=== PATIENT | male | born 1965 | race Caucasian/White ===

== ENCOUNTER 2016-07-15 14:19 | Inpatient (IN) | payer OTHER ==
[~2016-07-15] VITALS: Ht 180.3 cm; Wt 108.0 kg
[~2016-07-15 14:19] MED LIST: ARIP1TAB16 PO; ASPI1TAB69 PO; ATOR1TAB18 PO; CILO50TA PO; CITA20TA4 PO; CLOP75TA PO; HYDR-3583 PO; LISI40TA PO; PANT40TA3 PO; PRAZ2CAP PO; SUCR1TAB PO; TRAZ100T4 PO; VENTAER INH
[2016-07-16] MEDS ORDERED: VARE1 PO (08:58)
[2016-07-16] MEDS ORDERED: MORP1TAB25 PO (13:45)
[2016-08-01] MEDS ORDERED: PROPOFOL 200 MG/20 ML AMP IV ONE (09:34)
[2016-08-01] MEDS ORDERED: ONDANSETRON HCL 4 MG/2 ML VIAL IV PUSH ONE (09:37)
[2016-08-01] MEDS ORDERED: NEOSTIGMINE 3 MG/3 ML SYR IV ONE (09:37)
[2016-08-01] MEDS ORDERED: LACTATED RINGER'S 1000 ML INJ 1,000 ML IV ONE (09:37)
[2016-08-01] MEDS ORDERED: PHENYLEPH/NS 1000 MCG/10 ML SYR IV ONE (09:37)
[2016-08-01] MEDS ORDERED: NORMOSOL R INJ 3,000 ML IV ONE (09:38)
[2016-08-01] MEDS ORDERED: BUPIVACAINE/EPINEPHRINE 0.25% PF 30 ML VIAL ONE (09:51)
[2016-08-01] MEDS ORDERED: GENTAMICIN SULFATE 80 MG/2 ML VIAL ONE (09:51)
[2016-08-01] MEDS ORDERED: VANCOMYCIN HCL 1000 MG VIAL ONE (10:13)
[2016-08-01] MEDS ORDERED: SODIUM CHLOR 0.9% 250 ML INJ 250 ML ONE (10:13)
[2016-08-01] MEDS ORDERED: CHLORHEXIDINE GLUCONATE 4% SOLN 120 ML BTL TOPICAL SCH (10:15)
[2016-08-01] MEDS ORDERED: LACTATED RINGER'S 1000 ML IV PRN (10:15)
[2016-08-01] MEDS ORDERED: SODIUM CHLORID 0.9% 500 ML IV PRN (10:15)
[2016-08-01] MEDS ORDERED: POVIDONE IODINE 5% (ANTISEPSIS KIT) 4 APPLICATIONS EACH NARE PRN (10:15)
[2016-08-01] MEDS ORDERED: VANCOMYCIN 1000 MG/NS 250 ML (for <70 kg) IV SCH ×2 (10:15)
[2016-08-01] MEDS ORDERED: CHLORHEXIDINE GLUCONATE 2 % 1 PACK (2 CLOTHS) TOPICAL PRN (10:15)
[2016-08-01] MEDS ORDERED: INSULIN HUMAN REGULAR 1,000 UNITS/10 ML VIAL SQ PRN (10:15)
[2016-08-01] MEDS ORDERED: ceFAZolin 2 GM PREMIX 50 ML IV SCH (10:15)
[2016-08-01] MEDS ORDERED: METOPROLOL TARTRATE 25 MG TAB PO PRN (10:15)
[2016-08-01 10:16] VITALS: BP 121/63; PULSE 80; RESP 18; TEMP 97.9; O2SAT 93
[2016-08-01] MEDS ORDERED: FAMOTIDINE 20 MG/2 ML VIAL ONE (11:21)
[2016-08-01] MEDS ORDERED: MIDAZOLAM HCL 2 MG/2 ML VIAL ONE (11:21)
--- NOTE | 2016-08-01 15:41 | PD.OP ---
cc: Steve Jesus MD; Henrique Jesus MD Operative Report Date of Surgery: Aug 01, 2016 Preoperative Diagnosis: Herniated nucleus pulposus C4 5, central. Herniated nucleus pulposus C5 6, central. Osteophyte disc complex, C6 7. Cervical radiculopathy Postoperative Diagnosis: Same Procedure: Anterior cervical discectomy decompression with bilateral foraminotomies, C4 5. Anterior cervical discectomy decompression with bilateral foraminotomy, C5 6. Anterocervical dissected decompression bilateral foraminotomies, C6 7. Left anterior iliac crest bone graft Anesthesia: Gen. Surgeon: Henrique Jesus Overcoiler(s): RICKY Jolly Operation and Findings: EBL: 50 cc INDICATIONS: This patient is a 51-year-old male with significant neck and arm pain. Investigative studies shows evidence of a disc herniation centrally into the right at C4 5, centrally C5 6 and an osteophyte disc complex at C6 7. The patient presents with a hard cervical radiculopathy. The patient presents for surgical treatment. NOTE: Molly Jolly PA-C was present for the entire surgical procedure as my web marketing assistant. In my medical opinion her skill and care was necessary for proper management of this patient PROCEDURE: The patient was brought to the operating room and anesthetized in the supine position. This patient was positioned supine on the radiolucent table. All pressure points were protected in the anterior cervical spine and iliac crest was scrubbed with alcohol followed by Hibiclens followed by ChloraPrep. A timeout was done and antibiotics were given within 1 hour time window. Lateral radiographic images were used identifying the proper level. A right anterior incision was made in line with skin creases. The platysma was opened in line with the incision. Deep dissection continued in the interval between the carotid sheath and the esophagus. The longus-coli muscles were lifted on both sides and retractors were positioned allowing good exposure. Lateral radiographic images were used to identify the proper level. [place] style interosseous pins were placed at C4 and C5 allowing exposure to that level. The microscope was rolled into the field. A total discectomy was accomplished and posterior osteophytes were removed. The posterior longitudinal ligament and annulus was taken down. Bilateral foraminotomies were accomplished. The endplates were squared up anticipating later bone grafting. A blunt probe could be placed out each foramen without evidence of nerve root compromise. The C4 pin was placed down to C6. An anterior exposure was accomplished. We performed a total discectomy with excision of the posterior annulus and posterior longitudinal ligament. Bilateral foraminotomies were accomplished. Osteophytes were removed. The endplates were squared up anticipating later bone grafting. A blunt probe could be placed out each foramen without evidence of nerve root compromise. The C5 pin was placed down to to 7. An anterior exposure was accomplished. We performed a total discectomy with excision of the posterior annulus and posterior longitudinal ligament. Bilateral foraminotomies were accomplished. Osteophytes were removed. The endplates were squared up anticipating later bone grafting. A blunt probe could be placed out each foramen without evidence of nerve root compromise. The left iliac crest was approached. A small stab incision was made allowing percutaneous access to the anterior iliac crest. Multiple cores of cancellous bone were harvested and taken to the back table to be used for later bone grafting. The wound was irrigated anesthetized and closed with 4-0 Vicryl followed by Dermabond. The case was turned over to Dr. Steve Jesus for fusion and instrumentation per his dictation. FINDINGS: Was evidence of a significant osteophyte disc complex at C6 7 with bilateral uncovertebral joint hypertrophy and central stenosis with foraminal stenosis. At the C5 6 level there was a central disc herniation contained by the posterior longitudinal ligament but outside the posterior annulus. At C4 5 there was a significant extruded disc herniation centrally and to the right creating a significant right-sided greater than left foraminal stenosis. The final decompression at each level was very satisfactory NOTE: This surgery was performed in 2 parts. The first part was the neurosurgical decompression performed under the variable power stereo microscope by the undersigned in addition to the bone graft. The second portion of the surgery will be performed by the orthopedic spine component by co -surgeon, Dr. Steve Jesus for the anterior fusion with interbody cage and anterior plate. The skill of 2 surgeons was necessary to perform distinct separate procedural services as dictated above and dictated in the following operative note by Dr. Steve Jesus. Henrique Jesus MD Aug 01, 2016 15:41
[2016-08-01] MEDS: LACTATED RINGER'S 1000 ML INJ 1,000 ML IV SCH (16:36)
[2016-08-01] MEDS ORDERED: ALUMINUM/MAGNESIUM/SIMETH 30 ML CUP PO PRN (16:36)
[2016-08-01] MEDS ORDERED: ONDANSETRON HCL 4 MG/2 ML VIAL IV PRN (16:36)
[2016-08-01] MEDS ORDERED: NALOXONE HCL 0.4 MG/ML AMP IV PRN ×2 (16:36)
[2016-08-01] MEDS ORDERED: SODIUM CHLORIDE 0.9% FLUSH 5 ML FLUSH IVF PRN (16:45)
[2016-08-01] MEDS ORDERED: Post-op Orders (for Pharmacy) MISC XX ONE (16:45)
[2016-08-01] MEDS ORDERED: ACETAMINOPHEN/HYDROcodone 325 MG/10 MG TAB PO PRN (16:45)
--- NOTE | 2016-08-01 16:56 | RADRPT ---
EXAM DATE/TIME: 08/01/2016 11:20 [facility] COMPARISON: No previous studies available for comparison. INDICATIONS : C-spine ACDF. MEDICAL HISTORY : None. SURGICAL HISTORY : None. ENCOUNTER: Initial ACUITY: 1 day PAIN SCORE: Non-responsive. LOCATION: Bilateral NECK FINDINGS: 2 lateral views and an AP view of the cervical spine were obtained and demonstrate the patient status post anterior cervical fusion at the C4-C7 level with intact anterior screw-plate fixation device. B one grafting material and metallic markers are noted in the 3 interspaces which are poorly defined. A lignment appears anatomic. CONCLUSION: Status post anterior cervical fusion at the C4-C7 level. Lester Srena MD on August 01, 2016 at 16:52 Board Certified Radiologist. This report was verified electronically.
--- NOTE | 2016-08-01 16:56 | PD.OP ---
Operative Report Date of Surgery: Aug 01, 2016 Preoperative Diagnosis: C4-5 hnp, odc, C5-6 hnp, odc, C6-7 hnp, foraminal stenosis Postoperative Diagnosis: C4-5 hnp, odc, C5-6 hnp, odc, C6-7 hnp, foraminal stenosis Procedure: C4-7 ACDF Anesthesia: general Surgeon: Steve Jesus M.D. Records Administrator(s): RICKY Brown Albert W. MD Aug 01, 2016 16:56
[2016-08-01] MEDS ORDERED: fentaNYL CITRATE 250 MCG/5 ML AMP ONE ×2 (17:00)
[2016-08-01] MEDS ORDERED: *HYDROmorphone PF 1 MG VIAL PERIprocedural Use ONLY ONE ×2 (17:40→18:51)
[2016-08-01] MEDS ORDERED: VARENICLINE 1 MG TAB PO SCH (18:00)
[2016-08-01] MEDS: ACETAMINOPHEN/HYDROcodone 325 MG/10 MG TAB PO PRN (19:56)
[2016-08-01] MEDS: MORPHINE SULFATE 30 MG CONTROLLED RELEASE TAB PO PRN (20:01)
[2016-08-01 20:20] VITALS: BP 105/59; PULSE 69; RESP 17; TEMP 97; O2SAT 98
[2016-08-01] MEDS ORDERED: PRAZOSIN HCL 2 MG CAP PO SCH (21:00)
[2016-08-01] MEDS: SODIUM CHLORIDE 0.9% FLUSH 5 ML FLUSH IVF SCH (21:00)
[2016-08-01] MEDS ORDERED: ZOLPIDEM TARTRATE 5 MG TAB PO PRN (21:00)
[2016-08-01] MEDS ORDERED: traZODone HCL 100 MG TAB PO SCH (21:00)
[2016-08-01] MEDS ORDERED: ATORVASTATIN 80 MG TAB PO SCH (21:00)
[2016-08-01] MEDS: SUCRALFATE 1 GM TAB PO SCH (22:03)
[2016-08-02 00:15] VITALS: BP 136/76; PULSE 74; RESP 17; TEMP 97.4; O2SAT 98
[2016-08-02] MEDS: ACETAMINOPHEN/HYDROcodone 325 MG/10 MG TAB PO PRN ×2 (02:53→04:25)
[2016-08-02 04:20] VITALS: BP 134/67; PULSE 76; RESP 17; TEMP 98; O2SAT 98
[2016-08-02] MEDS: LACTATED RINGER'S 1000 ML INJ 1,000 ML IV SCH (04:31)
[2016-08-02] MEDS: MORPHINE SULFATE 30 MG CONTROLLED RELEASE TAB PO PRN (06:06)
--- NOTE | 2016-08-02 06:42 | PD.ORT.PN ---
Subjective Subjective Remarks pt complaints of post op neck pain, arm pain resolved, no iliac crest pain Objective Vitals Vital Signs Date Time Temp Pulse Resp B/P Pulse Ox O2 Delivery O2 Flow Rate FiO2 08/02/16 04:20 98.0 76 17 134/67 98 08/02/16 03:50 16 08/02/16 00:15 97.4 74 17 136/76 98 08/01/16 21:00 18 08/01/16 20:20 97.0 69 17 105/59 98 08/01/16 19:00 76 18 123/59 97 Nasal Cannula 3 08/01/16 18:00 77 12 122/56 97 Nasal Cannula 3 08/01/16 17:45 80 13 115/60 95 Nasal Cannula 3 08/01/16 17:30 84 13 113/58 97 Nasal Cannula 3 08/01/16 17:15 85 11 112/57 95 Nasal Cannula 4 08/01/16 17:00 87 11 107/59 96 Nasal Cannula 4 08/01/16 16:52 97.7 96 11 108/59 96 Simple Mask 6 08/01/16 10:16 97.9 80 18 121/63 93 I/O 08/01/16 08/01/16 08/01/16 08/02/16 08/02/16 08/02/16 07:00 15:00 23:00 07:00 15:00 23:00 Intake Total 3740 ml 240 ml Output Total 700 ml 975 ml Balance 3040 ml -735 ml Intake Oral 240 ml 240 ml Other 3500 ml Output Urine Total 600 ml 975 ml Estimated Blood Loss 100 ml # Voids 0 # Bowel Movements 0 0 Objective Remarks seen by Dr. Steve Jesus [place] collar in place, dressing dry Motor is +5/5 to UE Assessment & Plan Assessment and Plan POD # 1 s/p C4-7 [place] collar x 8 weeks discharge home today, orthopedically stable pain has pain meds at home, not prescribing any narcotics Eileen Chau Aug 02, 2016 06:41
[2016-08-02 08:00] VITALS: BP 135/70; PULSE 80; RESP 18; TEMP 96; O2SAT 92
[2016-08-02] MEDS ORDERED: PANTOPRAZOLE SOD 40 MG DELAYED RELEASE TAB PO SCH (09:00)
[2016-08-02] MEDS: SODIUM CHLORIDE 0.9% FLUSH 5 ML FLUSH IVF SCH (09:00)
[2016-08-02] MEDS ORDERED: CITALOPRAM HYDROBROMIDE 20 MG TAB PO SCH (09:00)
[2016-08-02] MEDS ORDERED: LISINOPRIL 20 MG TAB PO SCH (09:00)
[2016-08-02] MEDS ORDERED: MULTIVITAMINS/MINERALS THERAPEUTIC TAB PO SCH (09:00)
[2016-08-02] MEDS ORDERED: ARIPiprazole 2 MG TAB PO SCH (09:00)
[2016-08-02] MEDS: SUCRALFATE 1 GM TAB PO SCH (09:36)
[2016-08-02 12:00] VITALS: BP 148/78; PULSE 78; RESP 18; TEMP 96.9; O2SAT 95
--- NOTE | 2016-08-04 08:47 | MP ---
cc: CELESTE TOMAS M.D., REGINA J. M.D. DATE OF SURGERY: 08/01/2016 PREOPERATIVE DIAGNOSIS 1. C4-5 herniated nucleus pulposus, osteophyte disk complex. 2. C5-6 herniated nucleus pulposus, osteophyte disk complex. 3. C6-7 osteophyte disk complex, herniated nucleus pulposus. 4. Cervical spine degenerative disk disease, osteoarthritis. 5. Right greater than left cervical radiculitis with right upper extremity weakness. POSTOPERATIVE DIAGNOSIS 1. C4-5 herniated nucleus pulposus, osteophyte disk complex. 2. C5-6 herniated nucleus pulposus, osteophyte disk complex. 3. C6-7 osteophyte disk complex, herniated nucleus pulposus. 4. Cervical spine degenerative disk disease, osteoarthritis. 5. Right greater than left cervical radiculitis with right upper extremity weakness. PROCEDURE C4-5, C5-6, C6-7 interbody fusion; C4-5, C5-6, C6-7 SpineNet ACC anterior cervical cages; C4 to C7 SpineNet Rauscher anterior spinal instrumentation. SURGEON Fatuma Tomas MD TEACHER PHYSICALLY IMPAIRED KACEY Brown SPECIMEN None. ESTIMATED BLOOD LOSS 100 ccs for the entire case. COMPLICATIONS None. ANESTHESIA General. DRAIN None. CONDITION Stable. PLAN OF ACTIVITY Per orders. PROCEDURE Dr. Henrique Tomas and myself were co-surgeons. Dr. Henrique Tomas performed the neuro decompressive portion of the procedure which is C4-5, C5-6, C6-7, anterior cervical diskectomy, anterior decompression, foraminotomies using operative microscope and left anterior iliac crest bone grafting. I performed the spinal stabilization and fusion portion of the procedure. My assistant professor of forestry KACEY Brown was present for the entire surgical case of my portion. She was medically necessary for the entire case because of the complexity of the case and to facilitate the performance of the procedure. The GOLF COURSE LABORER at the back table was not a skill set for this case to manipulate the instruments, e.g., multiple different types of soft tissue retractors, trial implants, and permanent implants. The endplates at C6-7 were prepared for fusion. The hyaline cartilage endplate removed using angled curettes and burs. A 6, 10 x 12 ACC cage was placed in the interspace. Anterior iliac crest bone grafting was used for interbody fusion. C5-6 anterior cervical diskectomy was performed with Dr. Henrique Tomas. The endplates were prepared for fusion using angled curettes and burs. A 6, 10 x 12 ACC cage was placed in the interspace. Anterior iliac crest bone graft was used under fluoroscopic guidance for interbody fusion. The endplates at C4-5 were prepared for fusion. Hyaline cartilage endplate using angled curettes and burs. A 6, 10 x 12 ACC cage was placed in the interspace. Anterior iliac crest bone graft under fluoroscopic guidance interbody fusion. Anterior osteophytes at C4-5, C5-6 and C6-7 were all removed using multiple different types of rongeurs and burs. A 63 mm SpineNet Rauscher plate was contoured to appropriate dimensions. The plate was held in fixation by two transfixion screws and also one tack. The two screws were used at the vertebral body C4, C5,C6 and C7. Each of these screws were 14 mm in length, 4.0 mm outer diameter and fixed angled screws. Each of the screws were drilled and screws were inserted and each screw head was appropriately locked to the plate. All transfixion screws were pinned, removed as was the tack. Intraoperative fluoroscopy AP and lateral plane confirmed satisfactory position of the bone grafts at C4-5, C5-6, C6-7, satisfactory position of ACC cages at C4-5, C5-6, C6-7 and satisfactory position of anterior spinal instrumentation from C4 to C7. The wound itself was irrigated with copious amounts of sterile saline solution. SurgiFlo was also used in the foramens and in the surrounding soft tissues. The patient was found to have no further bleeding or hemorrhaging. The wound was irrigated with copious amounts of sterile saline. The wound itself was dry. The wound was closed in routine manner. Multiple layers using 3-0 Vicryl suture. The skin was approximated with running subcuticular 4-0 Vicryl. Sterile dressings were applied. The patient tolerated the procedure well and arrived in the recovery room in stable and satisfactory condition. MD TIM Bennett/BETZAIDA /4:51 PM /8:15 AM EAMON
== END 2016-08-02 13:14 | disposition home or self-care (01) | DRG 473 ==
LOC: HSDI 08-01 09:38 → N06A 08-01 19:43
PROVIDERS: ADMIT Orthopaedic Surgery Orthopaedic Surgery of the Spine; ATTEND Orthopaedic Surgery Orthopaedic Surgery of the Spine
PROC: 0RG2070 Fusion of 2 or more Cervical Vertebral Joints with Autologous Tissue Substitute, Anterior Approach, Anterior Column, Open Approach (ICD-10-PCS; 2016-08-01)
PROC: 0QB30ZZ Excision of Left Pelvic Bone, Open Approach (ICD-10-PCS; 2016-08-01)
PROC: 0RT30ZZ Resection of Cervical Vertebral Disc, Open Approach (ICD-10-PCS; 2016-08-01)
PROC: XRG2092 Fusion of 2 or more Cervical Vertebral Joints using Nanotextured Surface Interbody Fusion Device, Open Approach, New Technology Group 2 (ICD-10-PCS; principal; 2016-08-01 11:27)
DX: M50.121 Cervical disc disorder at C4-C5 level with radiculopathy (principal); M25.78 Osteophyte, vertebrae; M50.122 Cervical disc disorder at C5-C6 level with radiculopathy; M50.123 Cervical disc disorder at C6-C7 level with radiculopathy
CPT/HCPCS: 72040; 76000; C1713; J0690; J1170; J1580; J2250; J2370; J2405; J2710; J3010; J3370; J7050; J7120; L0150

== ENCOUNTER → 2016-07-16 | Outpatient (CLI) | payer OTHER ==
[~2016-07-16] MED LIST changes: +MORP1TAB25 PO; +PLAV75TA29 PO; +VARE1 PO
[2016-07-16 10:01] LABS: AUTOMATED NEUTROPHIL # 5.3 TH/MM3 (1.8-7.7); BASOPHIL # 0.1 TH/MM3 (0-0.2); BASOPHIL % 0.7 % (0.0-2.0); EOSINOPHIL # 0.1 TH/MM3 (0-0.4); EOSINOPHIL % 1.4 % (0.0-4.0); HEMO FLAGS DIFF FINAL; LYMPH % 26.8 % (9.0-44.0); LYMPHOCYTE # 2.2 TH/MM3 (1.0-4.8); MEAN CELL VOLUME 92.9 FL (80.0-100.0); MEAN CORPUSCULAR HEMOGLOBIN 31.9 PG (27.0-34.0); MEAN CORPUSCULAR HGB CONC 34.3 % (32.0-36.0); MONO % 7.3 % (0.0-8.0); NEUT % 63.8 % (16.0-70.0); PLATELET COUNT 218 TH/MM3 (150-450); RED BLOOD COUNT 4.95 MIL/MM3 (4.50-5.90); RED CELL DISTRIBUTION WIDTH 14.2 % (11.6-17.2); WHITE BLOOD COUNT 8.3 TH/MM3 (4.0-11.0)
[2016-07-16 10:22] LABS: BICARBONATE 25.6 MEQ/L (21.0-32.0); POTASSIUM 4.2 MEQ/L (3.5-5.1)
--- NOTE | 2016-07-16 11:57 | EKG ---
Date Performed: 07/16/2016 Time Performed: 08:45:51 PTAGE: 51 years EKG: Sinus rhythm NORMAL ECG NO PREVIOUS TRACING DOCTOR: Eric Agudelo Interpretating Date/Time 07/16/2016 11:50:58
== END ==
LOC: CPRE 08:26
PROVIDERS: ATTEND Orthopaedic Surgery Orthopaedic Surgery of the Spine
DX: Z01.810 Encounter for preprocedural cardiovascular examination (principal); Z01.812 Encounter for preprocedural laboratory examination; M48.06 Spinal stenosis, lumbar region
CPT/HCPCS: 36415; 80048; 85025; 93005

== ENCOUNTER 2016-08-19 16:05 | Inpatient (IN) | payer OTHER ==
[~2016-08-19] VITALS: Ht 177.8 cm; Wt 107.0 kg
[~2016-08-19 16:05] MED LIST changes: -CILO50TA PO; -CLOP75TA PO; -PLAV75TA29 PO; -VARE1 PO; -VENTAER INH
[2016-08-21] MEDS ORDERED: PLAV75TA29 PO (14:17)
[2016-08-22] MEDS ORDERED: INSULIN HUMAN REGULAR 1,000 UNITS/10 ML VIAL SQ PRN (07:15)
[2016-08-22] MEDS ORDERED: CHLORHEXIDINE GLUCONATE 2 % 1 PACK (2 CLOTHS) TOPICAL PRN (07:15)
[2016-08-22] MEDS ORDERED: SODIUM CHLORID 0.9% 500 ML IV PRN (07:15)
[2016-08-22] MEDS ORDERED: POVIDONE IODINE 5% (ANTISEPSIS KIT) 4 APPLICATIONS EACH NARE PRN (07:15)
[2016-08-22] MEDS ORDERED: METOPROLOL TARTRATE 25 MG TAB PO PRN (07:15)
[2016-08-22] MEDS ORDERED: LACTATED RINGER'S 1000 ML IV PRN (07:15)
[2016-08-22 07:32] VITALS: BP 92/47; PULSE 84; RESP 18; TEMP 98.3; O2SAT 94
[2016-08-22] MEDS ORDERED: VANCOMYCIN 1000 MG/NS 250 ML (for <70 kg) IV SCH ×2 (08:00)
[2016-08-22] MEDS ORDERED: POVIDONE IODINE 7.5% SCRUB 118 ML BOTTLE TOPICAL SCH (08:00)
[2016-08-22] MEDS ORDERED: ceFAZolin 2 GM PREMIX 50 ML IV SCH (08:00)
[2016-08-22] MEDS ORDERED: VASOPRESSIN INJ 20 UNITS/ML VIAL ONE (08:39)
[2016-08-22] MEDS ORDERED: fentaNYL CITRATE 250 MCG/5 ML AMP ONE (08:55)
[2016-08-22] MEDS ORDERED: ACETAMINOPHEN 1000 MG/100 ML VIAL IV ONE (08:55)
[2016-08-22] MEDS ORDERED: FAMOTIDINE 20 MG/2 ML VIAL ONE (09:17)
[2016-08-22] MEDS ORDERED: MIDAZOLAM HCL 2 MG/2 ML VIAL ONE (09:17)
[2016-08-22] MEDS ORDERED: KETAMINE HCL 500 MG/5 ML VIAL ONE (09:23)
[2016-08-22] MEDS ORDERED: GENTAMICIN SULFATE 80 MG/2 ML VIAL IRRIGATION ONE (10:26)
[2016-08-22] MEDS: LACTATED RINGER'S 1000 ML INJ 1,000 ML IV SCH ×2 (11:34→20:14)
[2016-08-22] MEDS ORDERED: SUGAMMADEX SODIUM 200 MG/2 ML VIAL IV PUSH ONE ×2 (11:39)
--- NOTE | 2016-08-22 11:43 | PD.OP ---
cc: Steve Jesus MD; Henrique Jesus MD Operative Report Date of Surgery: August 22, 2016 Preoperative Diagnosis: Cervical spinal stenosis. Cervical radiculopathy. Status post anterior cervical fusion, C4 5, C5 6, C6 7 Postoperative Diagnosis: Same Procedure: Posterior cervical fusion, C4 5, C5 6, C6 7. Posterior spinal segmental inch mentation C4 5, C5 6, C6 7. Placement of intra-facet cages, bilateral C4 5, C5 6, C6 7. Left posterior iliac crest bone graft Anesthesia: Gen. Surgeon: Henrique Jesus Photograph Editor(s): RICKY Jolly Operation and Findings: EBL: 50 cc INDICATIONS: This patient is a 51-year-old male with significant neck and arm pain status post anterior cervical fusion C4 to C7. The patient now presents for staged posterior cervical fusion at the same levels. NOTE: Molly Jolly PA-C was present for the entire surgical procedure as my product development assistant. In my medical opinion her skill and care was necessary for proper management of this patient PROCEDURE: The patient was brought the operating room and anesthetized in the supine position. The patient was positioned prone on a Edd table. The arms were placed out along the side and taping was utilized to ensure adequate visualization. AP and lateral radiographic images were used identifying the proper level and allowing excellent exposure for purpose of the cervical fusion. A timeout was done and antibiotics were given within a routine time window. A small incision was made over the left iliac crest bone graft. A series of cores of bone graft were harvested with a special percutaneous device. The bone graft was taken to the back table to be mixed with stem cell bone graft for the later part of the case Using AP and lateral radiographs, skin markings were made. On the right side and 18-gauge spinal needle was placed down to the proper level. The left side a separate incision was made and we used the iovoxRAX system. Exposure was afforded down to the proper level. Under visualization, a chisel was placed down to the C C6 7 level. This was confirmed under radiographs to be in proper position. Exposure was satisfactory. This is placed down into the facet joint at that level. A decorticating device was utilized decorticating the bone of the facet above and below. A retractor was placed down over the access chisel allowing exposure to the joint and exposure to the articular cartilage. A drilling system was utilized removing cartilage and bone this region followed by a rasp. On the back table demineralized bone matrix was mixed with Nucel stem cells and a autogenous bone graft. A combination of both these were then paced placed into proper cages. The cages were impacted into the proper position and checked again under AP and lateral fluoroscopic images. A transfixation screw was placed into the cage having excellent fixation into the facet joint of the level above. The back side of the cage was filled with additional bone graft which was tamped into position. The retractor was removed. On the right side a separate incision was made. Using the likewise sequence of access to the same level, an incision was made allowing visualization for placement of an access chisel which was placed into the joint followed by decortication with excellent visualization. A final retractor was positioned holding this while we were able to drill and use the rasp. The joint was prepared and we created a space for the cage. The cage was filled with bone graft and impacted in proper position. A transfixation screw was fixated at that time and alignment was satisfactory. Additional bone graft placed along the posterior aspect of the cage and the facet joint and was tamped into position.. At the C5 6 level, this was repeated in the likewise fashion. A decorticating device was utilized decorticating the bone of the facet above and below. A retractor was placed down over the access chisel allowing exposure to the joint and exposure to the articular cartilage. A drilling system was utilized removing cartilage and bone this region followed by a rasp. On the back table demineralized bone matrix was mixed with Nucel stem cells and a autogenous bone graft. A combination of both these were then paced placed into proper cages. The cages were impacted into the proper position and checked again under AP and lateral fluoroscopic images. A transfixation screw was placed into the cage having excellent fixation into the facet joint of the level above. The back side of the cage was filled with additional bone graft which was tamped into position. The retractor was removed. On the right side this was repeated in the likewise fashion. Using the likewise sequence of access to the same level. An access chisel was placed into the joint followed by decortication with excellent visualization. A final retractor was positioned holding this while we were able to drill and use the rasp. The joint was prepared and we created a space for the cage. The cage was filled with bone graft and impacted in proper position. A transfixation screw was fixated at that time and alignment was satisfactory. Additional bone graft placed along the posterior aspect of the cage and the facet joint and was tamped into position. At the C4 5 level, this was repeated in the likewise fashion. A decorticating device was utilized decorticating the bone of the facet above and below. A retractor was placed down over the access chisel allowing exposure to the joint and exposure to the articular cartilage. A drilling system was utilized removing cartilage and bone this region followed by a rasp. On the back table demineralized bone matrix was mixed with Nucel stem cells and a autogenous bone graft. A combination of both these were then paced placed into proper cages. The cages were impacted into the proper position and checked again under AP and lateral fluoroscopic images. A transfixation screw was placed into the cage having excellent fixation into the facet joint of the level above. The back side of the cage was filled with additional bone graft which was tamped into position. The retractor was removed. On the right side this was repeated in the likewise fashion. Using the likewise sequence of access to the same level. An access chisel was placed into the joint followed by decortication with excellent visualization. A final retractor was positioned holding this while we were able to drill and use the rasp. The joint was prepared and we created a space for the cage. The cage was filled with bone graft and impacted in proper position. A transfixation screw was fixated at that time and alignment was satisfactory. Additional bone graft placed along the posterior aspect of the cage and the facet joint and was tamped into position. Intraoperative x-rays in AP and lateral plane showed excellent positioning and stabilization . The wound was irrigated copiously. Hemostasis was controlled. The fascia was closed with interrupted Vicryl suture skin and subcutaneous tissue with 3-0 Vicryl suture followed by Dermabond. The sponge count needle counts and sponge counts were all correct. The patient tolerated the procedure well as taken to the recovery room in satisfactory condition. FINDINGS: There was evidence of moderate facet instability worse to the right side at C4 5 and also to the left side at C5 6. Visibility was very satisfactory. Cage position was felt to be very good. There was no complication that was appreciated. Henrique Jesus MD August 22, 2016 11:43
[2016-08-22] MEDS ORDERED: SODIUM CHLORIDE 0.9% FLUSH 5 ML FLUSH IVF PRN (11:45)
[2016-08-22] MEDS ORDERED: MORPHINE SULFATE 4 MG/ML INJ IV PUSH PRN (11:45)
[2016-08-22] MEDS ORDERED: MORPHINE SULFATE 30 MG CONTROLLED RELEASE TAB PO PRN (11:45)
[2016-08-22] MEDS ORDERED: BISACODYL 10 MG SUPP RECTAL PRN (11:45)
[2016-08-22] MEDS ORDERED: oxyCODONE/ACETAMINOPHEN 10 MG/325 MG TAB PO PRN (11:45)
[2016-08-22] MEDS ORDERED: ONDANSETRON HCL 4 MG/2 ML VIAL IV PRN (11:45)
[2016-08-22] MEDS ORDERED: Post-op Orders (for Pharmacy) MISC XX ONE (11:45)
[2016-08-22] MEDS ORDERED: PROPOFOL 200 MG/20 ML AMP IV ONE (12:00)
[2016-08-22] MEDS ORDERED: ONDANSETRON HCL 4 MG/2 ML VIAL IV PUSH ONE (12:00)
[2016-08-22] MEDS ORDERED: PHENYLEPH/NS 1000 MCG/10 ML SYR IV ONE (12:00)
[2016-08-22] MEDS ORDERED: ePHEDrine/NS 25 MG/5 ML SYR IV ONE (12:00)
[2016-08-22] MEDS ORDERED: LACTATED RINGER'S 1000 ML INJ 1,000 ML IV ONE (12:00)
[2016-08-22] MEDS ORDERED: *HYDROmorphone PF 1 MG VIAL PERIprocedural Use ONLY ONE ×2 (12:04→12:27)
[2016-08-22] MEDS ORDERED: DO NOT ADM ANY ANTICOAGULANT DRUGS PRN (13:15)
[2016-08-22] MEDS ORDERED: HYDROmorphone HCL PF 1 MG/ML VIAL IV PRN (13:30)
[2016-08-22 14:12] VITALS: BP_SYST 105; BP_SYST 107; BP_DIAS 58; BP_DIAS 62; PULSE 86; PULSE 93; RESP 18; TEMP 95.6; TEMP 96.1; O2SAT 93; O2SAT 95
--- NOTE | 2016-08-22 14:13 | RADRPT ---
EXAM DATE/TIME: 08/22/2016 11:22 [facility] COMPARISON: No previous studies available for comparison. INDICATIONS : C4-7 posterior cervical fusion. MEDICAL HISTORY : None. SURGICAL HISTORY : Anterior C4-7 fusion. ENCOUNTER: Initial ACUITY: 1 day PAIN SCORE: Non-responsive. LOCATION: Cervical spine. FINDINGS: Patient's had anterior cervical plate from C4-C7. The screws and intervertebral radiopaque markers ar e in good position. Device are placed between the facet joints from C4-C7 without complication..CONCL USION: Hardware placed as above. Torito Lopez MD on August 22, 2016 at 14:11 Board Certified Radiologist. This report was verified electronically.
[2016-08-22] MEDS: HYDROmorphone HCL PF 1 MG/ML VIAL IV PUSH PRN ×2 (14:25→20:15)
[2016-08-22 16:00] VITALS: BP 107/58; PULSE 93; RESP 18; TEMP 95.6; O2SAT 95
[2016-08-22] MEDS: CARISOPRODOL 350 MG TAB PO PRN (16:16)
[2016-08-22 20:10] VITALS: BP 108/69; PULSE 85; RESP 17; TEMP 96.8; O2SAT 98
[2016-08-22] MEDS: SODIUM CHLORIDE 0.9% FLUSH 5 ML FLUSH IVF SCH (20:14)
[2016-08-22] MEDS: SUCRALFATE 1 GM TAB PO SCH (20:14)
[2016-08-22] MEDS ORDERED: traZODone HCL 100 MG TAB PO SCH (21:00)
[2016-08-22] MEDS ORDERED: ATORVASTATIN 80 MG TAB PO SCH (21:00)
[2016-08-22] MEDS ORDERED: PRAZOSIN HCL 2 MG CAP PO SCH (21:00)
[2016-08-22] MEDS: oxyCODONE/ACETAMINOPHEN 10 MG/325 MG TAB PO PRN (22:19)
[2016-08-23 00:10] VITALS: BP 133/72; PULSE 74; RESP 17; TEMP 97.5; O2SAT 96
[2016-08-23] MEDS: HYDROmorphone HCL PF 1 MG/ML VIAL IV PUSH PRN (00:38)
[2016-08-23 04:10] VITALS: BP 130/78; PULSE 81; RESP 17; TEMP 96.9; O2SAT 95
[2016-08-23] MEDS: oxyCODONE/ACETAMINOPHEN 10 MG/325 MG TAB PO PRN ×3 (04:25→12:15)
[2016-08-23] MEDS: CARISOPRODOL 350 MG TAB PO PRN (04:26)
--- NOTE | 2016-08-23 06:59 | PD.ORT.PN ---
Subjective Subjective Remarks Complains of moderate neck pain. No arm pain Objective Vitals Vital Signs Date Time Temp Pulse Resp B/P Pulse Ox O2 Delivery O2 Flow Rate FiO2 08/23/16 04:10 96.9 81 17 130/78 95 08/23/16 00:10 97.5 74 17 133/72 96 08/22/16 20:10 96.8 85 17 108/69 98 08/22/16 16:00 95.6 93 18 107/58 95 08/22/16 14:12 96.1 86 18 105/62 93 08/22/16 13:50 97.7 87 20 106/53 96 Nasal Cannula 3 08/22/16 13:45 87 20 106/53 96 Nasal Cannula 3 Arterial Line 08/22/16 13:30 84 20 110/55 95 Nasal Cannula 3 Arterial Line 08/22/16 13:15 85 20 110/58 96 Nasal Cannula 3 Arterial Line 08/22/16 13:00 91 20 119/58 96 Nasal Cannula 3 Arterial Line 08/22/16 12:45 91 20 114/43 96 Nasal Cannula 3 08/22/16 12:30 94 20 110/62 97 Nasal Cannula 3 08/22/16 12:15 93 20 115/46 96 Nasal Cannula 3 08/22/16 12:00 97.7 92 20 120/49 96 Nasal Cannula 3 Automatic Cuff 08/22/16 07:32 98.3 84 18 92/47 94 I/O 08/22/16 08/22/16 08/22/16 08/23/16 08/23/16 08/23/16 07:00 15:00 23:00 07:00 15:00 23:00 Intake Total 1180 ml 1070 ml 914 ml Output Total 30 ml 400 ml 800 ml Balance 1150 ml 670 ml 114 ml Intake Oral 240 ml 240 ml IV Total 180 ml 830 ml 674 ml Other 1000 ml Output Urine Total 400 ml 800 ml Estimated Blood Loss 30 ml # Bowel Movements 0 0 Objective Remarks Dressing is dry. Collar fits well. No arm pain. Motor examination 5/5 all levels Assessment & Plan Ortho Post Op Day #: 1 Problem List: Assessment and Plan Cervical spinal stenosis. Cervical radiculopathy. Status post ACDF C4 to C7. Posterior cervical fusion C4 5, C5 6, C6 7. PLAN: Full-time cervical collar Patient has pain medications at home from pain management provider. No prescriptions from hospital for pain medications. Dry dressing change Discharge to home Follow-up in about 2 weeks Usual precautions given to the patient Henrique Jesus MD August 23, 2016 06:59
[2016-08-23 07:49] VITALS: BP 150/71; PULSE 59; RESP 16; TEMP 96.9; O2SAT 94
[2016-08-23] MEDS: SUCRALFATE 1 GM TAB PO SCH (08:23)
[2016-08-23] MEDS: SODIUM CHLORIDE 0.9% FLUSH 5 ML FLUSH IVF SCH (08:24)
[2016-08-23] MEDS ORDERED: ARIPiprazole 2 MG TAB PO SCH (09:00)
[2016-08-23] MEDS ORDERED: PANTOPRAZOLE SOD 40 MG DELAYED RELEASE TAB PO SCH (09:00)
[2016-08-23] MEDS ORDERED: DOCUSATE SODIUM 100 MG CAP PO SCH (09:00)
[2016-08-23] MEDS ORDERED: MULTIVITAMINS/MINERALS THERAPEUTIC TAB PO SCH (09:00)
[2016-08-23] MEDS ORDERED: CITALOPRAM HYDROBROMIDE 20 MG TAB PO SCH (09:00)
[2016-08-23] MEDS ORDERED: LISINOPRIL 20 MG TAB PO SCH (09:00)
[2016-08-23 11:10] VITALS: O2SAT 98
[2016-08-23 11:59] VITALS: BP 132/83; PULSE 69; RESP 16; TEMP 96.5; O2SAT 94
== END 2016-08-23 12:33 | disposition home or self-care (01) | DRG 473 ==
LOC: HSDI 08-22 06:36 → N06B 08-22 14:07
PROVIDERS: ADMIT Orthopaedic Surgery Orthopaedic Surgery of the Spine; ATTEND Orthopaedic Surgery Orthopaedic Surgery of the Spine
PROC: 0QB30ZZ Excision of Left Pelvic Bone, Open Approach (ICD-10-PCS; 2016-08-22)
PROC: 0RG20A0 Fusion of 2 or more Cervical Vertebral Joints with Interbody Fusion Device, Anterior Approach, Anterior Column, Open Approach (ICD-10-PCS; principal; 2016-08-22 09:19)
DX: M48.02 Spinal stenosis, cervical region (principal); Z98.1 Arthrodesis status; M54.12 Radiculopathy, cervical region
CPT/HCPCS: 72040; 76000; 94150; C1713; J0131; J0690; J1170; J1580; J2250; J2370; J2405; J3010; J3370; J7050; J7120

== ENCOUNTER 2017-04-10 06:11 | Day surgery (SDC) | payer OTHER ==
[~2017-04-10] VITALS: Ht 180.3 cm; Wt 111.1 kg
[~2017-04-10 06:11] MED LIST changes: -ATOR1TAB18 PO; +ATOR80TA45 PO; +PLAV75TA29 PO
[2017-04-10] MEDS ORDERED: IOHEXOL 350 MG/ML 10 ML VIAL (for RAD DIAG) IVCONTRAST ONE (06:12)
[2017-04-10] MEDS ORDERED: IOHEXOL 350 MG/ML 100 ML BTL (for Cath Lab) OTHER ONE (06:12)
[2017-04-10] MEDS ORDERED: SODIUM CHLOR 0.9% 1000 ML INJ 1,000 ML IV SCH ×2 (06:45→09:43)
[2017-04-10 07:11] VITALS: BP 98/62; PULSE 77; RESP 17; TEMP 97.9; O2SAT 94
[2017-04-10] MEDS ORDERED: FLUT1INH INH (07:30)
[2017-04-10] MEDS ORDERED: VENTAER INH (07:30)
[2017-04-10] MEDS ORDERED: LORA0.5T PO (07:30)
[2017-04-10] MEDS ORDERED: BUPR150T3 PO (07:30)
[2017-04-10] MEDS ORDERED: QUET1TAB7 PO (07:30)
[2017-04-10] MEDS ORDERED: ASPI81TA22 PO (07:30)
[2017-04-10] MEDS ORDERED: SERT-129 PO (07:30)
[2017-04-10] MEDS ORDERED: MIDAZOLAM HCL 2 MG/2 ML VIAL ONE ×3 (08:35→09:35)
[2017-04-10] MEDS ORDERED: HEPARIN-NS/PF INJ 1,000 ML ONE (08:35)
[2017-04-10] MEDS ORDERED: HEPARIN SODIUM - IV 10,000 UNITS/10 ML VIAL ONE (09:17)
[2017-04-10] MEDS ORDERED: CLOPIDOGREL 75 MG TAB ONE (09:38)
[2017-04-10] MEDS ORDERED: SODIUM CHLOR 0.9% 250 ML INJ 250 ML IV PRN (09:45)
[2017-04-10] MEDS ORDERED: METOCLOPRAMIDE HCL 10 MG/2 ML VIAL IV PUSH PRN (09:45)
[2017-04-10] MEDS ORDERED: LIDOCAINE HCL 1% 50 ML VIAL INFIL PRN (09:45)
[2017-04-10] MEDS ORDERED: LORazepam 2 MG/ML VIAL IV PUSH PRN (09:45)
[2017-04-10] MEDS ORDERED: ACETAMINOPHEN 325 MG TAB PO PRN (09:45)
[2017-04-10] MEDS ORDERED: ONDANSETRON HCL 4 MG/2 ML VIAL IV PUSH PRN (09:45)
[2017-04-10] MEDS ORDERED: MISC INFORMATION XX ONE (09:45)
[2017-04-10] MEDS ORDERED: ATROPINE SULFATE 1 MG/ML VIAL IV PUSH PRN (09:45)
--- NOTE | 2017-04-10 09:56 | CATHPROC ---
[facility] HIS Report Study Information Study Number Admission Scheduled Start Study Start [id number] Apr 10 2017 6:11AM 04/10/2017 Apr 10 2017 8:33AM [place] [facility] Cath Endovascular Study Admit Source Facility Department Other [facility] - Team Coordinator Physician and Clinical Staff Initial Torito Dewitt [employer] Supervisor Vitor Gamble,RN Recorder Shashi Mathis,RT(R) Scrub Henrique Forde,RT(R) Procedures Performed Procedure Location (Site) Vessel Name Abdominal Angiogram Abd Aorta (A3) Aorta Angiogram (manual) Iliac L. Com. (L4) Illiac Art. Angiogram (manual) Iliac R. Com. (R4) Illiac Art. Angiogram (manual) Popliteal R (R10) Popliteal Angiogram (manual) SFA (right) Femoral Art Periph stent Iliac R. Com. (R4) Illiac Art. CLOTH MERCERIZER BACK TENDER Iliac R. Com. (R4) Illiac Art. Wire insertion Fem Art (left) Femoral Art Equipment Time Title Investigator Description Size Mfg Part Number Used/Scraped PERCLOSE, PRO GLIDE CLOSER 09:37 [employer] FR 6 [id number] *[id number] Used DEVICE [id number] 09:01 CORDIS/ ALBERTO RIM SUPER TORQUE CATHETER FR 5 Used *[id number] ENDOVASCULAR 09:27 STENT, EVERFLEX 8 X 40 120CM 8 X 40 [id number] Used COMPANY BALLOON, ADMIRAL EXTREME 8 X [id number] 09:24 [employer] 80CM Used 20 80CM *[id number] 09:01 MALLINCKRODT SYRINGE, ANGIOMAT 150ML 150ML [id number] Used [id number] 09:01 [employer] PACK, CCL CUSTOM * Used *[id number] 09:01 [employer]url PACER PEN, SKIN DUAL W/ RULER * Used *[id number] [id number] 08:55 virocyt PIGTAIL ANG. CATHETER FR 5 Used *[id number] 09:01 virocyt WIRE, EXCHANGE 260CM 3MMJ 260CM Used *[id number] 09:01 NAMIC MANIFOLD, 4 PORT * Used *[id number] 09:01 NAMIC TUBING, HIGH PRESSURE 48" 48" Used *[id number] 09:04 NYCOMED OMNIPAQUE, 300 MG, 150ML 150ML [id number] Used 09:05 NYCOMED OMNIPAQUE, 300 MG, 50ML 50ML [id number] Used [id number] 09:01 [employer] BLANKET,WARM AIR CCL * Used *[id number] 09:01 TERUMO MEDICAL SHEATH, FR5 TERUMO (10CM) FR 5 Used *[id number] 09:13 TERUMO MEDICAL/ALBERTO CATHETER, FR5 ANGLED 100CM FR 5 [id number] *[id number] Used SHEATH, FR6 PINNACLE [id number] 09:18 TERUMO MEDICAL/ALBERTO FR 6 Used DESTINATION 45CM *[id number] WIRE, ANGLE GLIDE STIFF .035 [id number] 09:01 TERUMO MEDICAL/ALBERTO 260CM Used 260CM *[id number] Equipment Model, Serial, Lot Number and Expiration Data Description Model Number Serial Number Lot Number Expiration Date STENT, EVERFLEX 8 X 40 120CM [id number] 03-04-2019 History: Current Medications Medication Dosage/Unit Route Frequency Last Date/Time Taken LISINOPRIL PLAVIX ASA Albuterol Statins (any) History: Allergies Allergy Reaction morphine Itching pravastatin muscle aches simvastatin muscle aches History: Risk Factors Family History of Hypertension Dyslipidemia Previous DC Previous Heart Failure Premature CAD Yes Yes No Yes No Prior Valve Prior PCI Prior PCIDate Prior CABG Surgery No Yes 08/05/2014 No Cerebrovascular Peripheral Artery Chronic Lung On Dialysis Diabetes Disease Disease Disease No No Yes Yes No History: Stress Tests Stress or Imaging Studies Performed No History: Other Disease Selection Items CAD COPD Gerd HTN History: Other Current Smoker Method Packs a Day Years Used Pack Years Yes Cigarettes 1 30 30 Labs Hgb (g/dl) Hct (%) RBC (MIL/MM3) WBC (l/cumm) Platelets (thousands) 11.60-17.00 35.00-51.00 4.00-5.90 4.00-11.00 150.00-450.00 16.9 49.8 5.2 7.6 251 Glucose (mg/dl) BUN (mg/dl) Creatinine (mg/dl) BUN:Creatinine (1:x) 74.00-106.00 7.00-18.00 0.50-1.30 10.00-20.00 139 16 1.1 14.5 Na (meq/l) K (meq/l) Cl (meq/l) CO2 (mmol/L) Ca (mg/dl) 136.00-145.00 3.50-5.10 98.00-107.00 21.00-32.00 8.50-10.10 143 4 106 18 8.8 PT (sec) INR (PTT:PT) 9.80-11.60 0.90-1.10 9.8 0.9 CPK-MB (ng/ML) 0.50-3.60 Not Drawn Medication Medication Total Dose (Bolus/Oral) Medication Total Dosage/Unit 1% XYLOCAINE 20 mL FENTANYL 100 mcg HEPARIN 5000 units PLAVIX 150 mg VERSED 5 mg Medications (Bolus/Oral) Medication Time Given Dosage/Unit Administered By Reason VERSED 04/10/2017 8:59:36 AM 2 mg Vitor Gamble 2 mg VERSED given in lab by Vitor Gamble RN in Left Antecubital via Peripheral IV. FENTANYL 04/10/2017 8:59:47 AM 50 mcg Vitor Gamble 50 mcg FENTANYL given in lab by Vitor Gamble RN in Left Antecubital via Peripheral IV. 1% XYLOCAINE 04/10/2017 9:00:02 AM 20 mL Torito Mchugh 20 mL 1% XYLOCAINE given in lab by Torito Mchugh in Left Groin via Subcutaneous. VERSED 04/10/2017 9:09:21 AM 1 mg Vitor Gamble 1 mg VERSED given in lab by Vitor Gamble RN in Left Antecubital via Peripheral IV. FENTANYL 04/10/2017 9:09:34 AM 25 mcg Vitor Gamble 25 mcg FENTANYL given in lab by Vitor Gamble RN in Left Antecubital via Peripheral IV. HEPARIN 04/10/2017 9:20:41 AM 5000 units Vitor Gamble 5000 units HEPARIN given in lab by Vitor Gamble RN in Left Antecubital via Peripheral IV. FENTANYL 04/10/2017 9:20:50 AM 25 mcg Vitor Gamble 25 mcg FENTANYL given in lab by Vitor Gamble RN in Left Antecubital via Peripheral IV. VERSED 04/10/2017 9:30:07 AM 1 mg Vitor Gamble 1 mg VERSED given in lab by Vitor Gamble RN in Left Antecubital via Peripheral IV. VERSED 04/10/2017 9:38:21 AM 1 mg Vitor Gamble 1 mg VERSED given in lab by Vitor Gamble RN in Left Antecubital via Peripheral IV. PLAVIX 04/10/2017 9:52:36 AM 150 mg Vitor Gamble 150 mg PLAVIX given in lab by Vitor Gamble RN via Oral. Medication (Drip) Medication Time Given Dosage/Unit Concentration/Unit Diluent (ml) Solution IV Solutions 04/10/2017 8:33:50 AM 0 mL (IV) 500 NaCl .9 IV Solutions given in lab by Vitor Gamble RN in Left Antecubital via Peripheral IV. Pump/Drip Flow = 20 ml/hr using NaCl .9. Initial Case Assessment Cardiovascular HR Rhythm NIBP Chest Pain 64 Sinus 107/63 0 Edema Present Skin color Skin None Normal Warm Dry Circulatory - Right Pulses Dorsalis Pedis Posterior Tibial Femoral d d d Scale (0,1,2,3,4,d) Circulatory - Left Pulses Dorsalis Pedis Posterior Tibial Femoral d d d Scale (0,1,2,3,4,d) Neurological State Oriented to time-place- Alert Moves all extremities person Respiration - General Respiration Rate SpO2 (%) O2 (lpm) (B/min) 10 100 0 Final Case Assessment Cardiovascular HR Rhythm NIBP Chest Pain 71 Sinus 121/82 0 Edema Present Skin color Skin None Normal Warm Dry Circulatory - Right Pulses Dorsalis Pedis Posterior Tibial Femoral 1 1 1 Scale (0,1,2,3,4,d) Circulatory - Left Pulses Dorsalis Pedis Posterior Tibial Femoral 1 1 1 Scale (0,1,2,3,4,d) Neurological State Oriented to time-place- Alert Moves all extremities person Respiration - General Respiration Rate SpO2 (%) O2 (lpm) (B/min) 18 97 0 Chronological Log Time Study Chronological Log 8:30:29 Patient arrived via Bed. 8:33:34 Patient Name, D.O.B, / Armband Verified By R.N. 8:33:34 Consent signed by the physician and the patient and verified by the Team Coordinator staff. 8:33:35 Pre-op and post- op instructions given; patient acknowledges understanding of instructions. 8:33:40 Presedation assessment performed by Team Coordinator RN. 8:33:43 Patient has been NPO for More than 6Hrs. 8:33:44 Skin Breakdown- 8:33:45 Patient Warmer Placed on the Table. 8:33:45 Carlos A Prominences Protected 8:33:47 A # 20 IV was noted in the Antecubital (left). Grade = 0 IV Solutions given in lab by Vitor Gamble, RN in Left Antecubital via Peripheral IV. Pump/Drip Flow = 20 ml/hr using 8:33:50 NaCl .9. 8:33:51 History and physical on the chart or being dictated. Assessment: Initial Case, HR=64 BPM, Rhythm=Sinus, SVVY=386/63 mmhg, Chest Pain=0, Edema=None, Color=Normal, Skin = Warm, Dry Right Pulses: Hemant Ped=d, Post Tib=d, Femoral=d 8:33:51 Left Pulses: Hemant Ped=d, Post Tib=d, Femoral=d Neurological: State=Alert, Ox3, MOREIRA Respiration: Resp=10 B/min, VeI5=787 %, O2=0 lpm Vitals capture started with the following parameters, Patient=Adult, Interval=5 min, Initial Pr ouarwy=797 mmHg, 8:33:59 Deflation Rate=5 mmHg, Cuff placed on Right Arm 8:34:35 HR=71 bpm, NWRO=721/64 mmhg, SpO2=99.0 %, Resp=19 B/min, Pain=0, Anand=10, Lopez=2 8:39:30 HR=69 bpm, UOUZ=978/58 mmhg, SpO2=98.0 %, Resp=19 B/min, Pain=0, Anand=10, Lopez=2 8:44:31 DI=730 bpm, IIZB=421/63 mmhg, QjU0=674.0 %, Resp=13 B/min, Pain=0, Anand=10, Lopez=2 8:47:57 Reference ECG taken 8:49:32 HR=65 bpm, JNYU=290/58 mmhg, FxC7=135.0 %, Resp=16 B/min, Pain=0, Anand=10, Lopez=2 8:50:21 Bilateral groins prepped with 2% chlorhexidine, and draped after a 3 minute waiting time. 8:52:58 Reference ECG taken 8:53:03 Pressure channel 1 zeroed. 8:54:33 HR=70 bpm, GTTR=540/56 mmhg, GlC6=549.0 %, Resp=16 B/min, Pain=0, Anand=10, Lopez=2 8:59:19 MD arrived. 8:59:34 HR=76 bpm, NIBP=92/61 mmhg, SpO2=99.0 %, Resp=16 B/min, Pain=0, Anand=10, Lopez=2 Time Out. Correct patient, correct procedure, correct physician, power injector loaded, or not l oaded with contrast with 8:59:34 surgical team present. Time Out Concurred by MD and individual staff in procedure. 8:59:35 Case Start 8:59:36 2 mg VERSED given in lab by Vitor Gamble RN in Left Antecubital via Peripheral IV. 8:59:47 50 mcg FENTANYL given in lab by Vitor Gamble RN in Left Antecubital via Peripheral IV. 9:00:02 20 mL 1% XYLOCAINE given in lab by Torito Mchugh in Left Groin via Subcutaneous. 9:02:02 Access site was Left Femoral Artery. 9:02:10 A SHEATH, FR5 TERUMO (10CM) FR 5 was advanced into the Fem Art (left) using the Percutaneous technique. A RIM SUPER TORQUE CATHETER FR 5 was advanced over a wire. OMNIPAQUE, 300 MG, 50ML 50ML was used for 9:03:52 injections. 9:04:29 HR=69 bpm, NIBP=93/55 mmhg, SpO2=97.0 %, Resp=17 B/min, Pain=0, Anand=10, Lopez=2 9:04:46 Through a RIM SUPER TORQUE CATHETER FR 5, The Abdominal Aorta was injected with 12 cc's of c ontrast. After removing the current catheter a RIM SUPER TORQUE CATHETER FR 5 was advanced over a WIRE, A NGLE GLIDE 9:05:24 STIFF .035 260CM 260CM. 9:07:52 Iliac R. Com. (R4) angiogram, manually injected. 9:08:22 Iliac L. Com. (L4) angiogram, manually injected. 9:08:49 SFA (right) angiogram, manually injected. 9:09:21 1 mg VERSED given in lab by Vitor Gamble RN in Left Antecubital via Peripheral IV. 9:09:30 HR=78 bpm, NIBP=95/61 mmhg, SpO2=96.0 %, Resp=18 B/min, Pain=0, Anand=10, Lopez=2 9:09:34 25 mcg FENTANYL given in lab by Vitor Gamble RN in Left Antecubital via Peripheral IV. 9:09:53 SFA (right) angiogram, manually injected. 9:09:58 SFA (right) angiogram, manually injected. 9:10:25 Popliteal R (R10) angiogram, manually injected. 9:12:16 A WIRE, ANGLE GLIDE STIFF .035 260CM 260CM was inserted via Fem Art (left). After removing the current catheter a CATHETER, FR5 ANGLED 100CM FR 5 was advanced over a WIRE, ANGLE GLIDE 9:12:31 STIFF .035 260CM 260CM. 9:14:29 HR=73 bpm, NIBP=98/61 mmhg, SpO2=96.0 %, Resp=15 B/min, Pain=0, Anand=10, Lopez=2 Recorded Pressure: LIlcA, HR=82, Condition=Condition 1 9:15:46 (Left Iliac Artery) LIlcA 89/49/63 9:16:47 Iliac R. Com. (R4) angiogram, manually injected. A SHEATH, FR6 PINNACLE DESTINATION 45CM FR 6 was exchanged in the Fem Art (left). This was anatoliy whelan in order 9:17:31 to accomodate a larger catheter. 9:19:30 HR=78 bpm, NIBP=97/61 mmhg, SpO2=96.0 %, Resp=18 B/min, Pain=0, Anand=10, Lopez=2 9:20:41 5000 units HEPARIN given in lab by Vitor Gamble RN in Left Antecubital via Peripheral IV. 9:20:50 25 mcg FENTANYL given in lab by Vitor Gamble RN in Left Antecubital via Peripheral IV. A BALLOON, ADMIRAL EXTREME 8 X 20 80CM 80CM was inserted over WIRE, ANGLE GLIDE STIFF .035 260CM 260CM 9:22:53 via the Iliac R. Com. (R4). 9:23:52 In the Iliac R. Com. (R4) a BALLOON, ADMIRAL EXTREME 8 X 20 80CM 80CM was inflated to 6 atms for 20 seconds. 9:24:31 HR=80 bpm, NIBP=96/64 mmhg, SpO2=96.0 %, Resp=17 B/min, Pain=0, Anand=10, Lopez=2 9:25:38 Balloon Removed. 9:25:40 Iliac R. Com. (R4) angiogram, manually injected. 9:26:46 A STENT, EVERFLEX 8 X 40 120CM 8 X 40 was advanced over a WIRE, ANGLE GLIDE STIFF .035 260CM 260CM. 9:28:20 A STENT, EVERFLEX 8 X 40 120CM 8 X 40 was deployed in the Iliac R. Com. (R4). 9:29:16 Delivery device removed A BALLOON, ADMIRAL EXTREME 8 X 20 80CM 80CM was inserted over WIRE, ANGLE GLIDE STIFF .035 260CM 260CM 9:29:24 via the Iliac R. Com. (R4). 9:29:30 HR=76 bpm, NIBP=97/61 mmhg, SpO2=95.0 %, Resp=14 B/min, Pain=0, Anand=10, Lopez=2 9:29:42 In the Iliac R. Com. (R4) a BALLOON, ADMIRAL EXTREME 8 X 20 80CM 80CM was inflated to 10 naresh s for 10 seconds. 9:29:58 In the Iliac R. Com. (R4) a BALLOON, ADMIRAL EXTREME 8 X 20 80CM 80CM was inflated to 10 naresh s for 10 seconds. 9:30:07 1 mg VERSED given in lab by Vitor Gamble RN in Left Antecubital via Peripheral IV. 9:30:10 In the Iliac R. Com. (R4) a BALLOON, ADMIRAL EXTREME 8 X 20 80CM 80CM was inflated to 10 naresh s for 10 seconds. 9:30:23 Balloon Removed. 9:30:57 Iliac R. Com. (R4) angiogram, manually injected. A CATHETER, FR5 ANGLED 100CM FR 5 was advanced over a wire. OMNIPAQUE, 300 MG, 150ML 150ML was u sed for 9:31:49 injections. Recorded Pressure: RIlcA, HR=74, Condition=Condition 1 9:33:02 (Right Iliac Artery) RIlcA 105/54/75 9:34:30 HR=72 bpm, PXBX=528/67 mmhg, SpO2=96.0 %, Resp=18 B/min, Pain=0, Anand=10, Lopez=2 9:36:17 PERCLOSE, PRO GLIDE CLOSER DEVICE FR 6 placement in the Fem Art (left) 9:36:33 Activated Clotting Time Drawn 9:38:21 1 mg VERSED given in lab by Vitor Gamble, RN in Left Antecubital via Peripheral IV. 9:39:33 Case End 9:40:14 HR=76 bpm, EUFA=535/77 mmhg, SpO2=97.0 %, Resp=11 B/min, Pain=0, Anand=10, Lopez=2 9:40:17 ACT (Normal Range 90-180) = 238 Assessment: Final Case, HR=71 BPM, Rhythm=Sinus, OJGM=763/82 mmhg, Chest Pain=0, Edema=None, Color=Normal, Skin = Warm, Dry Right Pulses: Hemant Ped=1, Post Tib=1, Femoral=1 9:44:03 Left Pulses: Hemant Ped=1, Post Tib=1, Femoral=1 Neurological: State=Alert, Ox3, MOREIRA Respiration: Resp=18 B/min, SpO2=97 %, O2=0 lpm 9:44:36 HR=74 bpm, JFUT=249/82 mmhg, SpO2=97.0 %, Resp=15 B/min, Pain=0, Anand=10, Lopez=2 9:46:11 No case complications noted. 9:46:12 Cine recording checked. 9:47:23 Bedside Report will be given. 9:49:37 HR=73 bpm, WSAW=641/73 mmhg, SpO2=99.0 %, Resp=17 B/min, Pain=0, Anand=10, Lopez=2 9:49:59 Sterile dressing applied to site 9:50:03 Vitals capture stopped. 9:52:36 150 mg PLAVIX given in lab by Vitor Gamble, RN via Oral. 9:55:11 Patient moved to [facility] End Study - Contrast Media Used In Study Contrast Total Opened (mL) Total Used (mL) Total Wasted (mL) Omnipaque 150 100 50 End Study - Maximum Contrast Load Max Contrast Load (mL) 505.0 End Study - Radiation Exposure Fluoro Time (minutes) 8.0 End Study - Patient Disposition Complications Transferred To Interventional Outcome No Outpatient Bed successful
--- NOTE | 2017-04-10 10:15 | MA ---
cc: JENNY DE LEÓN DATE 04/10/2017 PROCEDURE PERFORMED 1. Fluoroscopy with interpretation. 2. Descending aortography. 3. Right lower extremity peripheral angiography with first, second and third order visualization and interpretation. 4. Percutaneous transluminal angioplasty and endovascular stenting of the right external iliac artery. METHOD The risks, benefits and alternatives were discussed with the patient. The patient understood and consented to the procedure. The patient was brought into the catheterization lab and was placed on the catheterization table. The left groin was prepped and draped in a sterile fashion. The left groin was anesthetized with 2% lidocaine. The left common femoral artery was cannulated and a 5 [place], 11 cm sheath was placed without difficulty. DESCENDING AORTOGRAPHY Descending aortography was performed in anterior and posterior views using a 24 cc contrast injection with good opacification. Descending aortography revealed mild infrarenal descending aortic atherosclerosis, bilateral renal arteries widely patent. RIGHT LOWER EXTREMITY PERIPHERAL ANGIOGRAPHY The right common iliac artery has a 30% proximal stenosis. The right external iliac artery has a stent present. At the distal stent margin there is a 75% stenosis with in-stent restenosis present. There is a 40 mmHg translesional gradient with pullback using a glide catheter consistent with a monophasic wave form visualized on arterial ultrasound and right lower extremity claudication symptoms. The right internal iliac artery has a 90% proximal stenosis, DONNA-III flow. The right common femoral, profunda, superficial femoral and popliteal arteries are widely patent. The right posterior tibial and peroneal vessels are patent. The right anterior tibial is diffusely diseased and has DONNA-I flow. PERCUTANEOUS INTERVENTION Given the suggestive symptoms, monophasic waveform on arterial ultrasound and pullback gradient, we elected to proceed with intervention. A 0.035 inch, 260 cm stiff angled Glidewire was navigated down to the right superficial femoral artery. A 6 [place] 45 cm [place] sheath was advanced up-and-over the arch into the right common femoral artery. An 8.0 x 20 mm Medtronic balloon was then predilated in the right distal external iliac artery. Repeat angiography still showed residual stenosis. A 8.0 x 40 mm Medtronic self-expanding EV3 stent was then deployed in the right external iliac artery with stent overlap and post dilated with an 8.0 mm balloon. Repeat angiography showed no residual stenosis. Pullback now showed no gradient. CONCLUSIONS 1. 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 2. Successful percutaneous intervention with self-expanding stent of the right external iliac artery. 3. Mild aortic descending aortic atherosclerosis. PLAN The patient will be monitored closely for any post procedural complications. He will be continued on aggressive medical therapy. Anticipate discharge today. MD JOSE LUIS Gallegos/DAVID /9:37 AM /9:45 AM MTDD
[2017-04-10] MEDS ORDERED: BACITRACIN OINT 0.9 GM PKT TOP ONE (10:30)
--- NOTE | 2017-04-10 14:42 | RADRPT ---
EXAM DATE/TIME: 04/10/2017 11:28 [place] COMPARISON: No previous studies available for comparison. INDICATIONS : Evaluate for retroperitoneal bleed IV CONTRAST: 98 cc Omnipaque 350 (iohexol) IV ORAL CONTRAST: No oral contrast ingested. RADIATION DOSE: 15.22 CTDIvol (mGy) MEDICAL HISTORY : Cardiovascular disease. Hypertension. Renal calculi. SURGICAL HISTORY : Appendectomy. Cholecystectomy. ENCOUNTER: Initial ACUITY: 1 day PAIN SCALE: 8/10 LOCATION: Abdomen TECHNIQUE: Volumetric scanning was performed using a multi-row detector CT scanner. The data was post processed with a variety of visualization algorithms including full volume maximum intensity projection, multi -planar sliding thin slab reformation, curved planar reformation, and surface rendering techniques. Using automated exposure control and adjustment of the mA and/or kV according to patient size, radiat ion dose was kept as low as reasonably achievable to obtain optimal diagnostic quality images. DICOM format image data is available electronically for review and comparison. FINDINGS: There is subsegmental atelectasis in the both bases. The liver and spleen are free of focal defects. The gallbladder and pancreas demonstrate no abnormality. The adrenal glands are normal. The kidneys demonstrate no evidence of solid renal mass or hydronephrosis. No free fluid or abdominal masses are identified. No para-aortic adenopathy is seen. Examination of the pelvis demonstrates no evidence of free fluid or pelvic mass. No abnormally enlarged inguinal or retroperitoneal lymph nodes are present . The bladder is unremarkable. There is diverticulosis without evidence of diverticulitis. No retrope ritoneal hematoma is identified The aorta is normal in caliber. There is no evidence of aneurysm or dissection. The renal artery orig ins are patent bilaterally. The celiac axis and superior mesenteric artery origins are also patent. R ight iliac artery stent is patent. CONCLUSION: 1. No evidence of acute abdominal or pelvic process. No masses are identified. 2. No evidence of retroperitoneal hematoma Jass Kirk MD on April 10, 2017 at 14:31 Board Certified Radiologist. This report was verified electronically.
== END 2017-04-10 16:20 | disposition home or self-care (01) ==
LOC: HDOC 06:11 → HDIC 06:12 → HDOC 16:20
PROVIDERS: ATTEND Internal Medicine
DX: I70.211 Atherosclerosis of native arteries of extremities with intermittent claudication, right leg (principal); I70.0 Atherosclerosis of aorta; I25.10 Atherosclerotic heart disease of native coronary artery without angina pectoris; I10 Essential (primary) hypertension; J44.9 Chronic obstructive pulmonary disease, unspecified; Z79.82 Long term (current) use of aspirin; Z87.442 Personal history of urinary calculi
CPT/HCPCS: 36247; 37221; 74174; 75625; 75710; 85002; 86850; 86900; 86901; C1725; C1760; C1769; C1876; C1887; C1893; G0269; J1644; J2250; J3010; Q9967